=== PATIENT | female | born 1975 | race Caucasian/White ===

== ENCOUNTER 2018-09-12 19:15 | Outpatient (REF) | payer OTHER, MEDICAID, SELFPAY ==
[2018-09-12 20:54] LABS: Anion Gap 10.7 mmol/L (3-11); BUN 25 mg/dL (7-18); CO2 26.3 mmol/L (21.0-32.0); Calcium 8.8 mg/dL (8.5-10.1); Chloride 103 mmol/L (98-107); Cholesterol 215 mg/dL (50-200); Glucose 93 mg/dL (70-100); HDL Cholesterol 47 mg/dL (40-60); Potassium 4.3 mmol/L (3.5-5.1); Sodium 140 mmol/L (136-145); TSH 1.84 uIU/mL (0.358-3.74); Triglyceride 66 mg/dL (30-150)
[2018-09-12 21:05] LABS: LDL CHOLESTEROL 153 mg/dL (<100)
== END 2018-09-12 19:35 ==
LOC: NCHCN 19:15
PROVIDERS: PCP Internal Medicine; Visit Provider Internal Medicine
DX: I10 Essential (primary) hypertension (principal); F17.210 Nicotine dependence, cigarettes, uncomplicated; F11.20 Opioid dependence, uncomplicated; G89.29 Other chronic pain
CPT/HCPCS: 80048; 80061; 83721; 84443

== ENCOUNTER 2020-04-21 17:56 | Outpatient (REF) | payer OTHER, MEDICAID, SELFPAY ==
[2020-04-21 22:14] LABS: Anion Gap 8.8 mmol/L (3-11); BUN 20 mg/dL (7-18); CO2 28.2 mmol/L (21.0-32.0); CREATININE 1.19 mg/dL (0.55-1.02); Calcium 9.4 mg/dL (8.5-10.1); Chloride 102 mmol/L (98-107); Estimated GFR 48.83 (mL/min/1.73m2); Glucose 113 mg/dL (74-106); LDL CHOLESTEROL 163 mg/dL (<100); Potassium 3.7 mmol/L (3.5-5.1); Sodium 139 mmol/L (136-145); TSH 2.72 uIU/mL (0.36-3.74)
== END 2020-04-21 18:16 ==
LOC: NCHCN 17:56
PROVIDERS: PCP Internal Medicine; Visit Provider Internal Medicine
DX: I10 Essential (primary) hypertension (principal); G89.29 Other chronic pain; Z63.79 Other stressful life events affecting family and household; F11.20 Opioid dependence, uncomplicated
CPT/HCPCS: 80048; 83721; 84443

== ENCOUNTER 2020-05-12 09:13 | Outpatient (REF) | payer OTHER, MEDICAID, SELFPAY ==
[2020-05-14 09:09] LABS: Hepatitis B Surface Ag Negative (Negative)
[2020-05-14 09:54] LABS: Hepatitis C Ab w Rflx HCV PCR Negative (Negative)
[2020-05-14 10:15] LABS: HIV-1/2 Ag & Ab Screen Negative (Negative)
[2020-05-14 11:23] LABS: HSV Type 1 Ab, IgG Positive (Negative); HSV Type 2 Ab, IgG Positive (Negative)
[2020-05-14 11:29] LABS: Syphilis Serology (RPR) Negative (Negative)
[2020-05-14 14:10] LABS: Chlamydia Result Negative (Negative); GC Result Negative (Negative)
== END 2020-05-12 09:33 ==
LOC: NCHCN 09:13
PROVIDERS: PCP Internal Medicine; Visit Provider Physician Assistant
DX: Z11.3 Encounter for screening for infections with a predominantly sexual mode of transmission (principal)
CPT/HCPCS: 86803; 87340; 87389; 87491; 87591; 86592; 86695; 86696

== ENCOUNTER 2021-05-26 13:45 | Outpatient (REF) | payer OTHER, MEDICAID, SELFPAY ==
--- NOTE | 2021-05-26 12:30 | PAPFT_PTH ---
PATIENT: Shannon Hendricks LOC: [facility]#:[id number] AGE/SX: 46/F ROOM: RE05/26/[address]: Sal Thomas : 1975 BED: DIS: 05/26/2021 SPEC #: [id number] RECD: 05/26/21 17:55 STATUS: GABE REJamshid #: [id number] JOSIAS: 05/26/21 12:[address]: Sal Thomas DEPT: [facility] Cytology RECD BY: Cristy Vidales Tissues: 1 - CX/ENDOCX FOR PAP SMEARS Procedures: PAP THIN PREP/[facility] Screening HPV DNA PROBE Comments: [id number]
== END 2021-05-26 13:46 | disposition home or self-care (01) ==
LOC: NCHCN 13:45
PROVIDERS: PCP Internal Medicine; Visit Provider Internal Medicine
DX: Z12.4 Encounter for screening for malignant neoplasm of cervix (principal); Z01.419 Encounter for gynecological examination (general) (routine) without abnormal findings; Z87.410 Personal history of cervical dysplasia; Z11.51 Encounter for screening for human papillomavirus (HPV); R87.810 Cervical high risk human papillomavirus (HPV) DNA test positive
CPT/HCPCS: 88142; 87624

== ENCOUNTER 2021-08-29 19:40 | Outpatient (REF) | payer MEDICARE, MEDICAID, SELFPAY ==
[2021-08-29 20:34] LABS: Hemoglobin A1C 5.7 % (<5.7)
[2021-08-29 20:53] LABS: Anion Gap 8.5 mmol/L (3-11); BUN 25 mg/dL (7-18); CO2 26.5 mmol/L (21.0-32.0); CREATININE 1.3 mg/dL (0.55-1.02); Calcium 8.7 mg/dL (8.5-10.1); Chloride 104 mmol/L (98-107); Glucose 87 mg/dL (74-106); Potassium 4.6 mmol/L (3.5-5.1); Sodium 139 mmol/L (136-145); TSH 3.07 uIU/mL (0.36-3.74); Vitamin B12 404 pg/mL (193-986)
== END 2021-08-29 19:41 | disposition home or self-care (01) ==
LOC: NCHCN 19:40
PROVIDERS: PCP Internal Medicine; Visit Provider Internal Medicine
DX: R73.9 Hyperglycemia, unspecified (principal); I10 Essential (primary) hypertension
CPT/HCPCS: 80048; 82607; 83036; 84443

== ENCOUNTER 2022-06-05 18:41 | Outpatient (REF) | payer MEDICARE, MEDICAID, SELFPAY ==
[2022-06-09 12:56] LABS: Codeine Negative ng/mL (Cutoff: 25); Dihydrocodeine Negative ng/mL (Cutoff: 25); Hydrocodone Negative ng/mL (Cutoff: 25); Hydromorphone Negative ng/mL (Cutoff: 25); Morphine Negative ng/mL (Cutoff: 25); Naloxone Negative ng/mL (Cutoff: 25); Norhydrocodone Negative ng/mL (Cutoff: 25); Noroxycodone 98 ng/mL (Cutoff: 25); Noroxymorphone 33 ng/mL (Cutoff: 25); Opiates Interpretation Positive.
[2022-06-13 13:13] LABS: Fungus Smear No Fungi Seen
== END 2022-06-05 18:42 | disposition home or self-care (01) ==
LOC: NCHCN 18:41
PROVIDERS: PCP Internal Medicine; Visit Provider Internal Medicine
DX: L60.3 Nail dystrophy (principal); G89.29 Other chronic pain; Z79.891 Long term (current) use of opiate analgesic
CPT/HCPCS: 80361; 80362; 80365; 87101; 87107; 87206

== ENCOUNTER 2023-03-15 15:55 | Outpatient (REF) | payer MEDICARE, MEDICAID, SELFPAY ==
[2023-03-15 18:38] LABS: HCT 39.9 % (36.0-46.0); HGB 13.3 g/dL (11.2-15.7); MCH 28.5 pg (27.0-33.0); MCHC 33.3 % (32.0-36.0); MCV 86 fL (80-95); MPV 8.9 fL (8.0-11.0); Platelet Count 359 10^3/uL (130-400); RBC 4.66 10^6/uL (3.93-5.22); RDW 13.2 % (11.7-14.6); RDW-SD 41.4 fL; WBC 7.93 10^3/uL (4.4-10.8)
[2023-03-15 19:06] LABS: ALT 31 U/L (14-59); AST 26 U/L (15-37); Albumin 4.4 g/dL (3.4-5.0); Alkaline Phosphatase 90 U/L (46-116); BUN 22 mg/dL (7-18); Bilirubin, Total 0.3 mg/dL (0.2-1.0); CREATININE 1.4 mg/dL (0.55-1.02); Calcium 9.5 mg/dL (8.5-10.1); Calculated LDL 197 mg/dL (<100); Chloride 101 mmol/L (98-107); Cholesterol 276 mg/dL (<200); Estimated GFR 46.12 (mL/min/1.73m2); Ferritin 64 ng/mL (8-252); Glucose 103 mg/dL (74-106); HDL Cholesterol 51 mg/dL (40-60); Potassium 3.4 mmol/L (3.5-5.1); Sodium 139 mmol/L (136-145); TSH 1.38 uIU/mL (0.36-3.74); Total Protein 8.8 g/dL (6.4-8.2); Triglyceride 140 mg/dL (<150)
== END 2023-03-15 15:56 | disposition home or self-care (01) ==
LOC: NCHCN 15:55
PROVIDERS: PCP Internal Medicine; Visit Provider Internal Medicine
DX: R73.03 Prediabetes (principal); R53.83 Other fatigue; G89.29 Other chronic pain; Z79.891 Long term (current) use of opiate analgesic; R79.89 Other specified abnormal findings of blood chemistry
CPT/HCPCS: 80053; 80061; 85027; 82728; 84443

== ENCOUNTER 2024-03-14 14:06 | Outpatient (REF) | payer MEDICARE, MEDICAID, SELFPAY ==
[2024-03-14 19:10] LABS: Hemoglobin A1C 5.9 % (<5.7)
[2024-03-14 19:21] LABS: BUN 15 mg/dL (7-18); CREATININE 1.2 mg/dL (0.55-1.02); Calcium 9.8 mg/dL (8.5-10.1); Calculated LDL 168 mg/dL (<100); Chloride 104 mmol/L (98-107); Cholesterol 243 mg/dL (<200); Estimated GFR 55.15 (mL/min/1.73m2); Glucose 106 mg/dL (74-106); HDL Cholesterol 55 mg/dL (40-60); Potassium 4.1 mmol/L (3.5-5.1); Sodium 140 mmol/L (136-145); TSH 1.16 uIU/Ml (0.36-3.74); Triglyceride 103 mg/dL (<150)
[2024-03-17 11:15] LABS: HIV-1/2 Ag & Ab Screen Negative (Negative)
== END 2024-03-14 14:07 | disposition home or self-care (01) ==
LOC: NCHCN 14:06
PROVIDERS: PCP Internal Medicine; Visit Provider Internal Medicine
DX: Z13.6 Encounter for screening for cardiovascular disorders (principal); I10 Essential (primary) hypertension; Z00.00 Encounter for general adult medical examination without abnormal findings; Z13.1 Encounter for screening for diabetes mellitus
CPT/HCPCS: 80048; 80061; 87389; 83036; 84443

== ENCOUNTER 2025-04-29 18:27 | Outpatient (REF) | payer MEDICARE, MEDICAID, SELFPAY ==
[2025-04-29 21:06] LABS: Anion Gap 10.1 mmol/L (3-11); BUN 14 mg/dL (7-18); CO2 26.9 mmol/L (21.0-32.0); Calcium 9.5 mg/dL (8.5-10.1); Calculated LDL 184 mg/dL (<100); Chloride 101 mmol/L (98-107); Cholesterol 269 mg/dL (<200); Estimated GFR 54.80 (mL/min/1.73m2); Glucose 138 mg/dL (74-106); HDL Cholesterol 53 mg/dL (>or=50); Potassium 3.8 mmol/L (3.5-5.1); Sodium 138 mmol/L (136-145); Triglyceride 163 mg/dL (<150)
== END 2025-04-29 18:28 | disposition home or self-care (01) ==
LOC: NCHCN 18:27
PROVIDERS: PCP Internal Medicine; Visit Provider Internal Medicine
DX: I10 Essential (primary) hypertension (principal)
CPT/HCPCS: 80048; 80061